=== PATIENT | female | born 1970 | race Caucasian/White ===

== ENCOUNTER 2019-10-03 09:52 | Outpatient (CLI) | payer OTHER, SELFPAY ==
--- NOTE | ~2019-10-03 | MM_ITS ---
EXAMINATION: MM screening [facility] BI w ke HISTORY: Screening mammogram TECHNIQUE: Craniocaudal and mediolateral oblique 3-D tomosynthesis images were obtained and synthetic 2-D images were generated. CAD analysis was submitted and interpreted. COMPARISON: bilateral digital screening mammogram 06/17/2017 diagnostic right digital mammogram and limited right breast ultrasound 06/11/2017, 04/11/2016 bilateral digital screening mammogram examinations BREAST PARENCHYMAL COMPOSITION: There are scattered areas of fibroglandular density. FINDINGS: There is no evidence of suspicious mass, calcification, or architectural distortion to sugg est malignancy in either breast. There has been no suspicious interval change. IMPRESSION: 1. No mammographic evidence of malignancy. 2. Recommend routine screening mammography in one year. BI-RADS Category 1: Negative Reviewed, dictated and finalized at location A. [facility]
== END 2019-10-03 09:53 | disposition home or self-care (01) ==
PROVIDERS: Visit Provider Obstetrics & Gynecology
DX: Z12.31 Encounter for screening mammogram for malignant neoplasm of breast (principal)
CPT/HCPCS: 77063; 77067

== ENCOUNTER 2020-10-10 16:32 | Outpatient (CLI) | payer OTHER, SELFPAY ==
--- NOTE | ~2020-10-10 | MM_ITS ---
EXAMINATION: MM screening sveta BI w ke HISTORY: Screening TECHNIQUE: Craniocaudal and mediolateral oblique 3-D tomosynthesis images were obtained and synthetic 2-D images were generated. CAD analysis was submitted and interpreted. COMPARISON: Comparison to multiple prior studies sequentially, with oldest reviewed study dated 03/11. BREAST PARENCHYMAL COMPOSITION: There are scattered areas of fibroglandular density. FINDINGS: There is no evidence of suspicious mass, calcification, or architectural distortion to sugg est malignancy in either breast. There has been no suspicious interval change. IMPRESSION: 1. No mammographic evidence of malignancy. 2. Recommend routine screening mammography in one year. BI-RADS Category 1: Negative Reviewed, dictated and finalized at location A. 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
== END 2020-10-10 16:33 | disposition home or self-care (01) ==
PROVIDERS: Visit Provider Obstetrics & Gynecology
DX: Z12.31 Encounter for screening mammogram for malignant neoplasm of breast (principal)
CPT/HCPCS: 77063; 77067

== ENCOUNTER 2021-12-04 14:25 | Outpatient (CLI) | payer OTHER, SELFPAY ==
--- NOTE | ~2021-12-04 | MM_ITS ---
EXAMINATION: MM screening [facility] BI w ke HISTORY: Screening TECHNIQUE: Craniocaudal and mediolateral oblique 3-D tomosynthesis images were obtained and synthetic 2-D images were generated. CAD analysis was submitted and interpreted. COMPARISON: Comparison to multiple prior studies sequentially, with oldest reviewed study dated 10/2015. BREAST PARENCHYMAL COMPOSITION: There are scattered areas of fibroglandular density. FINDINGS: There is no evidence of suspicious mass, calcification, or architectural distortion to sugg est malignancy in either breast. There has been no suspicious interval change. IMPRESSION: 1. No mammographic evidence of malignancy. 2. Recommend routine screening mammography in one year. BI-RADS Category 1: Negative Reviewed, dictated and finalized at location A.
== END 2021-12-04 14:26 | disposition home or self-care (01) ==
LOC: ANHIMG 14:26
PROVIDERS: PCP Physician Assistant; Visit Provider Obstetrics & Gynecology
DX: Z12.31 Encounter for screening mammogram for malignant neoplasm of breast (principal)
CPT/HCPCS: 77063; 77067

== ENCOUNTER 2023-02-15 07:25 | Outpatient (CLI) | payer OTHER, SELFPAY ==
--- NOTE | ~2023-02-15 | MM_ITS ---
EXAMINATION: MM screening sveta BI w ke HISTORY: Screening mammogram TECHNIQUE: Craniocaudal and mediolateral oblique 3-D tomosynthesis images were obtained and synthetic 2-D images were generated. CAD analysis was submitted and interpreted. COMPARISON: December 04, 2021, October 10, 2020, October 03, 2019 bilateral screening mammogram examin ations BREAST PARENCHYMAL COMPOSITION: There are scattered areas of fibroglandular density. FINDINGS: There is no evidence of suspicious mass, calcification, or architectural distortion to sugg est malignancy in either breast. There has been no suspicious interval change. IMPRESSION: 1. No mammographic evidence of malignancy. 2. Recommend routine screening mammography in one year. BI-RADS Category 1: Negative Reviewed, dictated and finalized at location A.
== END 2023-02-15 07:26 | disposition home or self-care (01) ==
LOC: ANHIMG 07:27
PROVIDERS: PCP Physician Assistant; Visit Provider Obstetrics & Gynecology
DX: Z12.31 Encounter for screening mammogram for malignant neoplasm of breast (principal)
CPT/HCPCS: 77063; 77067

== ENCOUNTER 2024-04-17 15:57 | Outpatient (CLI) | payer BC, SELFPAY ==
--- NOTE | ~2024-04-17 | MM_ITS ---
EXAMINATION: MM screening sveta BI w ke HISTORY: Screening TECHNIQUE: Craniocaudal and mediolateral oblique 3-D tomosynthesis images were obtained and synthetic 2-D images were generated. CAD analysis was submitted and interpreted. COMPARISON: Comparison to multiple prior studies sequentially, with oldest reviewed study dated 05/24. BREAST PARENCHYMAL COMPOSITION: Not dense: There are scattered areas of fibroglandular density. FINDINGS: There is no evidence of suspicious mass, calcification, or architectural distortion to sugg est malignancy in either breast. There has been no suspicious interval change. IMPRESSION: 1. No mammographic evidence of malignancy. 2. Recommend routine screening mammography in one year. BI-RADS Category 1: Negative Reviewed, dictated and finalized at location B.
== END 2024-04-17 15:58 | disposition home or self-care (01) ==
LOC: ANHIMG 16:00
PROVIDERS: PCP Physician Assistant; Visit Provider Obstetrics & Gynecology
DX: Z12.31 Encounter for screening mammogram for malignant neoplasm of breast (principal)
CPT/HCPCS: 77063; 77067

== ENCOUNTER 2025-08-03 15:45 | Outpatient (CLI) | payer BC, SELFPAY ==
--- NOTE | ~2025-08-03 | MM_ITS ---
EXAMINATION: MM screening sveta BI w ke HISTORY: Screening. TECHNIQUE: Craniocaudal and mediolateral oblique 3-D tomosynthesis images were obtained and synthetic 2-D images were generated. CAD analysis was submitted and interpreted. COMPARISON: 2023, 2022, and 2021. BREAST PARENCHYMAL COMPOSITION: Dense: The breasts are heterogeneously dense FINDINGS: There are waxing and waning circumscribed nodules/masses, consistent with breast cysts. No suspicious masses are seen. There are no suspicious calcifications. No unexplained architectural distortion is seen. There are no skin or nipple abnormalities identified. There is no adenopathy seen on the images submitted. IMPRESSION: No mammographic evidence to suggest malignancy is seen. The patient may return to screening mammography as per ACR guidelines. BI-RADS 2 - Benign. Reviewed, dictated and finalized at location C. ER AFTER LASTING
--- OUTSIDE RECORDS SUMMARY | 2025-08-03 16:03 | XMS_ITS | Clinical Summary ---
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 Gender Identity Not on file Sexual Orientation Not on file Plan of Treatment Health Maintenance Due Date Last Done Comments Hepatitis C Virus (HCV) Screening 1970 TdaP Immunization 1970 Hepatitis B Immunization (1 of 3 - 19+ 3-dose series) 1989 Pap Smear 1991 Cervical Cancer Screening (CCS) 2000 HPV/Cotest 2000 Cologuard 2015 Colonoscopy 2015 Colorectal Cancer Screening 2015 Immunochemical Fecal Occult Blood 2015 Pneumococcal Immunization (5 0+ years) (1 of 1 - PCV) 2020 Zoster Immunization (1 of 2) 2020 Influenza Immunization (#1) 04/23/202505/24, 04/25/2018, 06/14/2017 SARS-COV-2 Immunization (3 - 2024- season) 2025 10/28/2020, 09/30/2020 Respiratory Syncytial Virus (RSV) Immunization (Adult) (1 - 1-dose 75+ series) 2045 Human Papillomavirus (HPV) Immunization Aged Out No longer eligible b ased on patient's age to complete this topic Meningococcal Immunization (ACWY) Aged Out No longer eligible b ased on patient's age to complete this topic Rotavirus Immunization Aged Out No lo nger eligible based on patient's age to complete this topic
--- OUTSIDE RECORDS SUMMARY | 2025-08-03 16:04 | XMS_ITS | Clinical Summary ---
Author Organization [address] Address [address] [address] Care Team Providers Care Production Operator Name Role Phone JOHNY Scott Jr., Cruz Reynoso Primary Care Provide r Allergies No known active allergies Medications levonorgestrel (MIRENA) IUD Mirena 20 mcg/24 hours (5 yrs) 52 mg intrauterine device Take 1 device by intrauterine route. Active amitriptyline (ELAVIL) 25 mg tabletIndicatio ns:Migraine with aura and without status migrainosus, not intractable TAKE ONE TABLET BY MOUTH DAILY 90 tablet 1 5 Active oxyBUTYnin (DITROPAN) 5 mg tabletIndicatio ns:Urinary urgency TAKE ONE TABLET BY MOUTH TWO TIMES A DAY 180 tablet 1 5 Active Active Problems Problem Noted Date Diagnosed Date Intrauterine contraceptive device status 020 Urinary urgency 05/07/2020 Migraine with aura and witho ut status migrainosus, not intractable 03/28/2018 Mammogram abnormal 06/22/2017 Vitamin D deficiency 03/01/2017 Resolved Problems Problem Noted Date Diagnosed Date Resolved Date Encounter for specialized medical examination 05/07/20 20 09/08/2021 Migraine without status migr ainosus, not intractable 03/01/2017 09/08/2021 Immunizations Immunization Administration Dates Next Due Influenza, Quadrivalent, Spl it, Preservative Free, Intramuscular 06/26/2023,06/17/2021,05/03/2020,04/26,04/25/2018 Influenza, Trivalent, Preser vative Free, Intramuscular 06/14/2017 Influenza, Unspecified 05/29/2024,2023(Deferred: Patient decision),06/26/2023,05/23/2022(Deferr ed: Patient Refused),05/23/2021 Moderna SARS-CoV-2 Monovalen t Vaccination (12+ YRS) 10/28/2020,09/30/2020 ZOSTER Recombinant 09/08/2021 Surgical History Surgery Date Site/Laterality Comments BLADDER SURGERY SHOULDER ARTHROSCOPY W/ ROTATOR CUFF REPAIR Medical History Medical History Date Comments Migraines Family History Medical History Relation Name Comments Stroke Father No Known Problems Mother Relation Name Status Comments Father Alive Mother Alive Social History Tobacco Use Types Packs/Day Years Used Date Smoking Tobacco: Never Smokeless Tobacco: Never Tobacco Cessation:Counseling Given: Not Answered Alcohol Use Standard Drinks/Week Comments Yes 0 (1 standard drink = 0.6 oz pur e alcohol) AUDIT-C Answer Date Recorded Q1: How often do you have a drink containing alc ohol? Monthly or less 01/26/2025 Q2: How many drinks containi ng alcohol do you have on a typical day when you are drinking? 1 or 2 01/26/2025 Frequency of Binge Drinking Not on file 01/2025 PHQ-2 Answer Date Recorded PHQ-2 Total Score (If total score is 3 or more points, staff should administer the PHQ-9) 0 01/26/2025 Comments No Sex and Gender Information Value Date Recorded Sex Assigned at Not on file Legal Sex Female 11:58 AM CDT Gender Identity Female 12/10/2022 9:03 AM CDT Sexual Orientation Not on file Last Filed Vital Signs Vital Sign Reading Time Taken Comments Blood Pressure 112/80 01/26/2025 9:45 AM CDT Pulse 78 01/26/2025 9:45 AM CDT Temperature 36.4 C (97.6 F) 01/26/2025 9:45 AM CDT Respiratory Rate 16 01/26/2025 9:45 AM CDT Oxygen Saturation 97% 01/26/2025 9:45 AM CDT Inhaled Oxygen Concentration - - Weight 67.1 kg (148 lb) 01/26/2025 9:45 AM CDT Height 157.5 cm (5' 2) 01/26/2025 9:45 AM CDT Body Mass Index 27.07 01/26/2025 9:45 AM CDT Plan of Treatment Health Maintenance Due Date Last Done Comments Cervical Cancer Screening 1970 Hepatitis C Screening 1970 DTaP/Tdap/Td Vaccine (1 - Tdap) 1981 Hepatitis B Screening 1988 Zoster Vaccine (2 of 2) 11/03/2021 09/08/2021 Breast Cancer Screening-Mammogram 04/17/2025 04/17/2024, 02/15/2023, 08/06/2017 Covid-19 Vaccine (4 - season) 2025 09/21/2021, 10/28/2020, 09/30/2020 Influenza Vaccine (#1) 2025 , 06/26/2023, 06/26/2023, Additional history exists Depression Screening 01/26/2026 01/26/2025, 01/24/2024, 01/20/2023, Additional history exists Regular Well Visit/Exam 18-64 01/26/2026 01/26/2025, 01/24/2024, 01/24/2024, Additional history exists Colon Cancer Screening-Colonoscopy 08/01/2030 08/01/2020 Colon Cancer Screening-CT Colonography Discontinued 08/01/2020 Colon Cancer Screening-DNA Stool Discontinued 08/01/2020 Colon Cancer Screening-FIT Discontinued 08/01/2020 Colon Cancer Screening-Sigmoidoscopy Discontinued 08/01/2020 Pneumococcal vaccine <65 Aged Out No longer eligible based on patient's age to complete this topic Procedures Procedure Name Priority Date/Time Associated Diagnosis Comments SCREENING MAMMOGRAM BILATERAL W [place] Schedule Routine, Read Routine (OP Routine) 04/17/2024 4:44 PM CDT COLONOSCOPY Routine 08/01/2020 from Last 3 Months or Most Recently Relevant to Health Maintenance Results * Screening Mammogram Bilateral [place] (04/17/2024 4:44 PM CDT) Anatomical Region Laterality Modality Breast Bilateral Mammography us Historical Provider MD VELASQUEZ MAMMO PROCEDURES [place] Result * Colonoscopy (08/01/2020) Anatomical Region Laterality Modality Other us Historical Provider ENDOSCOPY PROCEDURES [place] l Result from Last 3 Months or Most Recently Relevant to Health Maintenance Insurance [facility] PPO COMM[employer]CIAL [employer] [facility] Care Teams Production Operator Relationship Specialty Start Date End Date Cruz Scott Jr., PA [address] [place] [id number] PCP - General 08/06/17
--- OUTSIDE RECORDS SUMMARY | 2025-08-03 16:04 | XMS_ITS | Encounter Summary ---
Author Organization [facility] Healthcare Address [address] [place] [address] Care Team Providers Care Assessment Coordinator Name Role Phone JOHNY Scott Jr., Cruz Reynoso Primary Care Provide r Encounter Details Date Type Department Care Team ([facility] st Contact Info) Description 02/20/2025 Orders Only [facility] [address] [place] [address] Cruz Scott Jr., [place] [address] [address] Social History Tobacco Use Types Packs/Day Years Used Date Smoking Tobacco: Never Smokeless Tobacco: Never Alcohol Use Standard Drinks/Week Comments Yes 0 [...] AM CDT Sexual Orientation Not on file documented as of this encounter Plan of Treatment Not on file documented as of this encounter Procedures Procedure Name Priority Date/Time Associated Diagnosis Comments SCAN - LABS 02/20/2025 documented in this encounter Results * SCAN - LABS (02/20/2025) JOHNY Lopez Jr. Final Result documented in this encounter Visit Diagnoses Not on filedocumented in this encounter Care Teams Assessment Coordinator Relationship Specialty Start Date End Date Cruz Scott Jr., PA [address] [place] [id number] PCP - General 08/06/17 documented as of this encounter
--- OUTSIDE RECORDS SUMMARY | 2025-08-03 16:04 | XMS_ITS | Encounter Summary ---
Author Organization [facility] Care Team Providers Care Electrical Control Assembler Name Role Phone JOHNY Scott Jr., Cruz Reynoso Primary Care Provide r Encounter Details Date Type Department Care Team (Latest Contact Info) Description 06/13/2018 Orders Only [facility]INCON[facility] Provider, MD Jose [address] [place] [id number] Social History Tobacco Use Types Packs/Day Years Used Date Smoking Tobacco: Never Comments Unknown Sex and Gender Information Value Date Recorded Sex Assigned at Not on file Legal Sex Female 11:58 AM CDT Gender Identity Female 12/10/2022 9:03 AM CDT Sexual Orientation Not on file documented as of this encounter Plan of Treatment Not on file documented as of this encounter Procedures Procedure Name Priority Date/Time Associated Diagnosis Comments SCAN - LABS 06/13/2018 12:00 AM CDT documented in this encounter Results * SCAN - LABS (06/13/2018 12:00 AM CDT) Narrative 06/13/2018 12:00 AM CDT Ordered by an unspecified provider. Historical Provider Final Res ult documented in this encounter Visit Diagnoses Not on filedocumented in this encounter Care Teams Electrical Control Assembler Relationship Specialty Start Date End Date Cruz Scott Jr., PA [facility] [address] [id number] PCP - General 12/15/17 documented as of this encounter
== END 2025-08-03 15:46 | disposition home or self-care (01) ==
LOC: ANHFOHIMG 15:53
PROVIDERS: PCP Physician Assistant; Visit Provider Obstetrics & Gynecology
DX: Z12.31 Encounter for screening mammogram for malignant neoplasm of breast (principal)
CPT/HCPCS: 77063; 77067